=== PATIENT | male | born 1960 | race Caucasian/White ===

== ENCOUNTER → 2017-05-26 | Outpatient (CLI) | payer BC ==
[~2017-05-26] MED LIST: ALL180 PO; ATR25 PO; CLC100 PO; CRD4 PO; DILT-119 PO; FLNIN NAE; FRRG PO; GLC500 PO; HYDC25 PO; OXYC-57 PO; PRLSR20 PO; SYN75 PO
== END | disposition home or self-care (01) ==
LOC: C.RDSM 07:45
PROVIDERS: ATTEND Physical Medicine & Rehabilitation Sports Medicine
DX: M17.0 Bilateral primary osteoarthritis of knee (principal); Z96.649 Presence of unspecified artificial hip joint

== ENCOUNTER → 2017-12-01 | Outpatient (CLI) | payer BC | END | disposition home or self-care (01) | LOC: C.RDSM 07:25 | PROVIDERS: ATTEND Physical Medicine & Rehabilitation Sports Medicine | DX: M17.0 Bilateral primary osteoarthritis of knee (principal) ==

== ENCOUNTER 2021-02-07 06:46 | Observation (INO) ==
--- NOTE | 2021-01-12 11:33 | PAT Medication Instructions ---
Medication Instructions Date of Service January 12, 2021 Home Medications doxazosin 4 mg PO HS hydrochlorothiazide 12.5 mg PO QAM hydroxyzine HCl 25 mg PO DAILY PRN levothyroxine [Synthroid] 75 mcg PO QAM lisinopril 5 mg PO HS metoprolol succinate 50 mg PO QAM zolpidem 5 mg PO HS PRN amitriptyline 25 mg PO HS ascorbic acid (vitamin C) [Vitamin C] 500 mg PO QAM benzonatate [Tessalon Perles] 100 mg PO BID PRN omeprazole 20 mg PO QAM DO NOT take the morning of surgery hydrochlorothiazide 12.5 mg PO QAM hydroxyzine HCl 25 mg PO DAILY PRN ascorbic acid (vitamin C) [Vitamin C] 500 mg PO QAM benzonatate [Tessalon Perles] 100 mg PO BID PRN Take morning of surgery With a small sip of water, OTHERWISE NOTHING TO EAT OR DRINK AFTER MIDNIGHT: levothyroxine [Synthroid] 75 mcg PO QAM metoprolol succinate 50 mg PO QAM omeprazole 20 mg PO QAM Take evening before surgery doxazosin 4 mg PO HS hydroxyzine HCl 25 mg PO DAILY PRN (if needed) lisinopril 5 mg PO HS zolpidem 5 mg PO HS PRN (if needed) amitriptyline 25 mg PO HS benzonatate [Tessalon Perles] 100 mg PO BID PRN (if needed) Other Notes If you have any questions please call us at [phone] or [phone] or [phone] or [phone]
--- NOTE | 2021-01-15 09:03 | Anesthesiology Consultation ---
Date of Service January 15, 2021 Assessment & Plan (1) Encounter for pre-operative examination: COVID Status: As of 01/15 assessment, patient denies travel to endemic area, known exposure/sick contacts, or symptoms of COVID19. Patient instructed that they and their household members must follow strict social distancing guidelines, wear a mask in public and avoid travel/events/gatherings for 14 days prior to surgery. Preoperative COVID19 testing to be completed prior to surgery per surgeon's arrangements. Patient made aware to self-isolate as much as possible between COVID testing and surgery. Cardiology clearance 12/19/20 (Nancy): "Patient describes relatively stable cardiac signs and symptoms with chronic chest pain syndrome for which he has been followed for years. His EKG is without change today, and the character of his discomfort is unchanged compared to my previous outpatient visit with him and August 2020, and compared to my previous emergency room consultation on the patient performed at [facility] on 06/20/2020. He has undergone coronary angiography in 2018 with no significant coronary atherosclerosis. He is stable from a cardiac perspective to proceed with orthopedic surgery with an estimated low risk of perioperative cardiac complication." Chart Review Chart Review: Acceptable Risk for Surgery and Patient seen in Pre Admission Testing Teaching & Discussion Instructed NPO after midnight before surgery, except medications with 15 cc of water. Medication instructions provided according to the PAT guidelines. History Surgery Operation Date: 02/07/21 09:30 Proposed Procedures p Right Total Knee Arthroplasty - Stef Prado MD Height/Weight Height: 6 ft 3 in Weight: 141.7 kg Allergies Allergy/AdvReac Type Severity Reaction Status Date / Time No Known Allergies Allergy Mild Unverified 01/02/21 10:09 Medications Home Medications Medication Instructions Recorded Confirmed Last Taken doxazosin 4 mg PO HS 06/20/20 01/02/21 Unknown hydrochlorothiazide 12.5 mg PO QAM 06/20/20 01/02/21 Unknown hydroxyzine HCl 25 mg PO DAILY PRN 06/20/20 01/02/21 Unknown levothyroxine [Synthroid] 75 mcg PO QAM 06/20/20 01/02/21 Unknown lisinopril 5 mg PO HS 06/20/20 01/02/21 Unknown metoprolol succinate 50 mg PO QAM 06/20/20 01/02/21 Unknown zolpidem 5 mg PO HS PRN 06/20/20 01/02/21 Unknown amitriptyline 25 mg PO HS 01/02/21 01/02/21 Unknown ascorbic acid (vitamin C) [Vitamin 500 mg PO QAM 01/02/21 01/02/21 Unknown C] benzonatate [Tessalon Perles] 100 mg PO BID PRN 01/02/21 01/02/21 Unknown omeprazole 20 mg PO QAM 01/02/21 01/02/21 Unknown Past Medical History Medical History (Updated 01/15/21 @ 09:35 by Ag Deleon) Ascending aortic aneurysm 2018 - Dr. Cruz is monitoring. CT scan 06/20/20 shows stability at 4.9 cm. BPH (benign prostatic hyperplasia) Chronic pain GERD (gastroesophageal reflux disease) Controlled. HTN (hypertension) Hypothyroidism Metabolic syndrome X (05/04/11) Osteoarthritis PONV (postoperative nausea and vomiting) Exercise / Class Metabolic Activity II 4-5 Yardwork/Stairs/Walk up hill (Mild ARANDA with 1 FOS, chronic constant CP not worsened by stairs, does some yardwork) Past Surgical History Surgical History (Updated 01/15/21 @ 09:19 by Ag Deleon) History of arthroscopy of left knee History of cardiac cath 08/2018 - no stents History of lumbar surgery x 2. Hardware present. History of right hip replacement Hx of appendectomy Past Anesthesia History No Hx of Anesthesia Complications (other than pONV) and No Family Hx of Anesthesia Complications History of PONV No Hx of Motion Sickness and History of PONV Social History Smoking Status: Never smoker Do You Dip or Chew Tobacco: No Hx Alcohol Use: Yes alcohol intake frequency: a few times a week Hx Substance Use: No substance use type: does not use Review of Systems Pt denies any recent shortness of breath, palpitations, fever, URI, or uncontrolled acid reflux. +chest pain, chronic, "constant but varying in intensity" +cough, chronic, no formal dx Physical Exam Vital Signs BP: 144/101 (pt reports it was elevated at surgeon's office, pt advised to check it at home for the next few days and report to cardio. BP at 12/19/20 cardio clearance 113/88. P: 57bpm SPO2: 94% RA T: 97.9 F R: 16 ENMT Mouth: + macroglossia; no dental restorations, no chipped teeth and no loose teeth Thyromental Distance: > or= 3.5 Finger Breadths Mallampati Class: II Neck + limited neck extension Respiratory normal respiratory effort, lungs clear to auscultation Cardiovascular RRR, no murmur, no edema Testing Laboratory Results 01/15/21 09:39 01/15/21 09:39 PT 10.3 Seconds (9.0-12.0) 01/15/21 09:39 INR 1.0 (0.9-1.1) 01/15/21 09:39 APTT 26.2 Seconds (21.0-31.0) 01/15/21 09:39 Urine Color Yellow 01/15/21 09:39 Urine Appearance Clear (Clear) 01/15/21 09:39 Urine pH 7.0 (4.5-7.5) 01/15/21 09:39 Ur Specific [place] 1.009 (1.000-1.030) 01/15/21 09:39 Urine Protein Negative (Negative) 01/15/21 09:39 Urine Glucose (UA) Negative (Negative) 01/15/21 09:39 Urine Ketones Negative (Negative) 01/15/21 09:39 Urine Nitrite Negative (Negative) 01/15/21 09:39 Ur Leukocyte Esterase Negative (Negative) 01/15/21 09:39 Blood Type A Positive 01/15/21 09:39 Antibody Screen NEGATIVE 01/15/21 09:39 Electrocardiogram Date: 12/19/20 Findings: + NSR @ (63bpm) Chest X-Ray Date: 06/20/20 Findings: + NAD Echocardiogram Date: 05/29/20 EF: 61% Mild concentric LVH. LV wall motion is normal. Grade 1 diastolic dysfunction of the left ventricle. The aortic root is mildly enlarged at 4.4 cm. The ascending aorta is moderately enlarged, 4.9 cm. Compared to the prior study of 11/23/2018, there has been no significant interval change. Stress Test Date: 06/16/18 Resting EF: 55-60% Stress echo was negative for inducible ischemia. No arrhythmias. Normal heart rate and BP response to exercise. Average exercise tolerance. Chest pain present upon presentation, unchanged with exercise. At rest, normal LV chamber size with mild concentric LVH. Normal LV systolic function without regional wall motion abnormality. Grade 1 diastolic dysfunction. No significant valvular pathology. Mild left atrial enlargement. Aortic root is mildly enlarged. The proximal ascending thoracic aorta is moderately enlarged. Cardiac Catheterization Date: 08/20/18 Coronary arteries are angiographically normal. Catheterization provides no explanation for symptoms.
[2021-01-15 10:56] LABS: Basophils # (auto) 0.02 K/uL (0-0.2); Basophils % (auto) 0.4 %; Eosinophils # (auto) 0.15 K/uL (0-0.5); Eosinophils % (auto) 3.4 %; Hematocrit (blood only) 41.2 % (42-52); Hemoglobin 14.6 g/dL (14.0-18.0); Immature Granulocytes # (auto) 0.01 K/uL (0.00-0.02); Immature Granulocytes % (auto) 0.2 %; Lymphocytes # (auto) 1.54 K/uL (1.2-3.4); Lymphocytes % (auto) 34.5 %; Mean Corpuscular Hemoglobin 31.3 pg (25-34); Mean Corpuscular Hgb Conc 35.4 g/dL (32-36); Mean Corpuscular Volume 88.4 fL (80-100); Monocytes # (auto) 0.39 K/uL (0.11-0.59); Monocytes % (auto) 8.7 %; Neutrophils # (auto) 2.35 K/uL (1.4-6.5); Neutrophils % (auto) 52.8 %; Platelet Count 188 K/uL (130-400); RDW Coefficient of Variation 12.5 % (11.5-14.5); RDW Standard Deviation 40.1 fL (36.4-46.3); Red Blood Count 4.66 M/uL (4.7-6.1); White Blood Count 4.46 K/uL (4.8-10.8)
[2021-01-15 11:00] LABS: Appearance Urine Clear (Clear); Bilirubin Urine Negative (Negative); Blood Urine Negative (Negative); Color Urine Yellow; Glucose Urine UA Negative (Negative); Ketones Urine Negative (Negative); Leukocyte Esterase Urine Negative (Negative); Nitrite Urine Negative (Negative); Protein Urine Negative (Negative); Specific Gravity Urine 1.009 (1.000-1.030); Urobilinogen Urine Negative (Negative)
[2021-01-15 11:04] LABS: BUN Creatinine Ratio 16.8 (10-20); Calcium 9.4 mg/dl (8.5-10.1); Creatinine Clr Calc Pharmacy 117.8 ml/min; Est GFR (African American) 93.7; Est GFR (Non-African American) 80.9
[2021-01-15 11:07] LABS: Partial Thromboplastin Time 26.2 Seconds (21.0-31.0); Prothrombin Time 10.3 Seconds (9.0-12.0)
--- NOTE | 2021-01-18 09:53 | History & Physical Report ---
Date of Service January 18, 2021 Assessment & Plan (1) Left knee DJD: Postoperative prescriptions for Coumadin and Percocet will be provided at discharge from the hospital. Anticipate discharge to home with home health services. Preoperative lab work, EKG, and chest x-ray have been ordered for today. He is seeing preadmission testing today. The patient has already been cleared by his back tacker. He already has access to a walker and cane. PDMP was checked and there are no concerning findings. The patient is aware of the COVID-19 risks associated with surgery. He is currently asymptomatic of any COVID-19 symptoms. He will obtain nasal swab testing 1 week prior to surgery. Postop followup appointment has already been made for 02/22/2021 at 1:00 p.m. History of Present Illness Chief Complaint: Left knee DJD Primary Care Provider: Huang Ma DO This 60-year-old male presents today with his , for his preoperative hist ory and physical. He is scheduled to undergo a left knee total knee arthroplasty on 02/07/2021. The patient has had a longstanding history of bilateral knee pain, left greater than right. It has been ongoing for many years. He has noted more difficulty with weightbearing and ambulation. Pain is affecting his ADLs. No numbness or tingling. He has tried activity modification, oral pain medications, and injection therapy without improvement. Allergies Allergy/AdvReac Type Severity Reaction Status Date / Time No Known Allergies Allergy Mild Unverified 01/02/21 10:09 Home Medications Medication Instructions Recorded Confirmed Type doxazosin 4 mg PO HS 06/20/20 01/02/21 History hydrochlorothiazide 12.5 mg PO QAM 06/20/20 01/02/21 History hydroxyzine HCl 25 mg PO DAILY PRN 06/20/20 01/02/21 History levothyroxine [Synthroid] 75 mcg PO QAM 06/20/20 01/02/21 History lisinopril 5 mg PO HS 06/20/20 01/02/21 History metoprolol succinate 50 mg PO QAM 06/20/20 01/02/21 History zolpidem 5 mg PO HS PRN 06/20/20 01/02/21 History amitriptyline 25 mg PO HS 01/02/21 01/02/21 History ascorbic acid (vitamin C) [Vitamin 500 mg PO QAM 01/02/21 01/02/21 History C] benzonatate [Tessalon Perles] 100 mg PO BID PRN 01/02/21 01/02/21 History omeprazole 20 mg PO QAM 01/02/21 01/02/21 History Past Med/Surg History Medical History Ascending aortic aneurysm 2017 - Dr. Cruz is monitoring. CT scan 06/20/20 shows stability at 4.9 cm. BPH (benign prostatic hyperplasia) Chronic pain GERD (gastroesophageal reflux disease) Controlled. HTN (hypertension) Hypothyroidism Metabolic syndrome X (05/04/11) Osteoarthritis PONV (postoperative nausea and vomiting) Surgical History History of arthroscopy of left knee History of cardiac cath 08/2018 - no stents History of lumbar surgery x 2. Hardware present. History of right hip replacement Hx of appendectomy Social History Smoking Status: Never smoker Second Hand Exposure: No; Do You Dip or Chew Tobacco: No; Tobacco Cessation Education Requested by Patient: No Hx Alcohol Use: Yes Hx Substance Use: No Preferred Language: Slovak Communication Ability: Effective Christian Science Nurse Required: No Beliefs That Will Affect Care: None Current Living Situation: Spouse Other Information That Helps Us Care for You: No Feels Safe at Home: Yes Safety Concerns: Feels Safe At This Time Assistive Devices: Glasses Review of Systems Review of Systems: All systems reviewed & are unremarkable except as noted in HPI & below A total of 10 systems were reviewed. Physical Exam Physical Exam: Vitals: Height 190.3 cm, weight 136.6 kilograms, BMI 37.7. Temperature 36.5, BP 150/102, pulse 68, O2 sat 97% on room air. General: Well-developed, well-nourished middle-aged white male in no acute distress. Sitting in a chair. Alert and oriented. Skin: Warm and dry with good turgor. No rashes or lesions. No ecchymosis or erythema. HEENT: Normocephalic, atraumatic. Eyes: PERRLA, EOMI. Nares and oropharynx exams deferred due to COVID precautions. Heart: RRR, no MGR. Lungs: Clear to auscultation bilaterally, no crackles, rhonchi or wheezing, good air movement. Abdomen: Obese, bowel sounds present x4, soft, nontender. No organomegaly. No masses. Musculoskeletal: Left knee evaluation reveals no intraarticular effusion. Palpable arthritic spurs. He has crepitus palpable along the lateral aspect of the knee with motion. Range of motion is limited. He lacks about 4 degrees of terminal extension. Flexion to 140 degrees. Strength is 5/5 with fairly good quad tone. Stable collateral ligaments. No defect in the patellar tendon or quadriceps tendon. Ambulates with an antalgic gait. Neurologic: Gross sensation is intact across the lower extremities by soft touch. Peripheral pulses are 2+. Results & Data Results & Data ([facility]) Diagnostic Findings Radiographic imaging previously obtained of the left knee shows endstage DJD with [id number] in the medial compartment. Large periarticular osteophytes and subchondral sclerosis are also present.
[~2021-02-07 06:46] MED LIST changes: -ALL180 PO; -ATR25 PO; +BUPIVACAINE 0.5 % 5 MG/1 ML PF 10ML VIAL ONE; -CLC100 PO; -CRD4 PO; -DILT-119 PO; -FLNIN NAE; -FRRG PO; -GLC500 PO; -HYDC25 PO; +LR 500ML BOLUS, THEN 15ML/HR IV SCH; +LR 60ML/HR IV SCH; -OXYC-57 PO; -PRLSR20 PO; +ROPIVACAINE 0.5% 5 MG/ML 30 ML VIAL ONE; +ROPIVACAINE 0.5% HCL/PF 150 MG, BUPIVACAINE 0.75% MPF 20 ML, EPINEPHrine 0.15 MG, Ketor... INFIL SCH; -SYN75 PO; +TRANEXAMIC ACID 1,000 MG **IV Pre-op IV SCH
--- NOTE | 2021-02-07 06:51 | History & Physical Bridge Note ---
Date of Service February 07, 2021 History & Physical Bridge Note I have examined the patient, reviewed the History & Physical and in the interval since the performance of the History & Physical I have noted the following changes of clinical significance: consent obtained/site verified/covid screen negative.no changes noted
[2021-02-07] MEDS ORDERED: MIDAZOLAM HCL 1 MG/ML 2ML VIAL ONE ×2 (08:01→08:37)
[2021-02-07] MEDS ORDERED: fentaNYL citrate 100 MCG/2 ML VIAL ONE (08:01)
[2021-02-07] MEDS ORDERED: PROPOFOL IV EMULSION 10 MG/ML 20 ML VIAL IV ONE ×6 (08:01→11:08)
[2021-02-07] MEDS ORDERED: LIDOCAINE HCL 2% 2 ML VIAL/AMP(20MG/ML) INFIL ONE (08:01)
[2021-02-07] MEDS ORDERED: HYDROmorphone INJ 1 MG/ML SYRINGE IV PRN ×2 (08:36→13:17)
[2021-02-07] MEDS ORDERED: ePHEDrine sulfate 50 MG/ML AMP IV PRN (08:36)
[2021-02-07] MEDS ORDERED: KETOROLAC 30 MG/ML VIAL IV PRN (08:36)
[2021-02-07] MEDS ORDERED: PROMETHAZINE HCL 12.5 MG in SODIUM CHLORIDE 0.9% 50 ML IV PRN (08:36)
[2021-02-07] MEDS ORDERED: ONDANSETRON INJ 2 MG/ML 2 ML VIAL IV PRN ×2 (08:36→13:17)
[2021-02-07] MEDS ORDERED: ATROPINE SULFATE 0.1 MG/ML 10ML SYR IV PRN (08:36)
[2021-02-07] MEDS ORDERED: ORTHO JOINT ANESTHETIC ONE (09:01)
[2021-02-07] MEDS ORDERED: KETAMINE 50 MG/5 ML SYRINGE ONE (09:22)
--- NOTE | 2021-02-07 11:11 | Post Operative Brief Note ---
Immediate Post Op Note v1 Date of Surgery February 07, 2021 Pre & Post Diagnosis Operation Date: 02/07/21 08:50 Pre-Op Diagnosis: Left Knee Osteoarthritis Post-Op Diagnosis: Left Knee Osteoarthritis I identified the patient and participated in the time-out.: Yes Procedure Operation Date: 02/07/21 08:50 Actual Procedures p Left Total Knee Arthroplasty, Cemented(Left) - Stef Prado MD Surgeon Stef Prado MD Link Wire Fabric Machine Tender aracely/erika Estimated Blood Loss 150 Findings Consistent with Post-Op Diagnosis
--- NOTE | 2021-02-07 11:19 | Operative Report ---
Post Operative Report Pre & Post Diagnosis Operation Date: 02/07/21 08:50 Pre-Op Diagnosis: Left Knee Osteoarthritis Post-Op Diagnosis: Left Knee Osteoarthritis I identified the patient and participated in the time-out.: Yes Procedure Operation Date: 02/07/21 08:50 Actual Procedures p Left Total Knee Arthroplasty, Cemented(Left) - Stef Prado MD Surgeon JOCE Prado MD Mechanical Process Engineer aracely/erika SARABIA Estimated Blood Loss 150 Findings Consistent with Post-Op Diagnosis Specimens see operative report Drains none Complications none Disposition Accompanied Patient To Recovery: Yes Disposition: Recovery Room Indications This 60-year-old male presented to the office with complaints of persisting left knee pain. Symptoms have been ongoing for years. He tried conservative care measures without improvement. He elected to proceed with surgical intervention after being educated about potential risks and outcomes. Preoperative imaging was obtained. Description of Procedure Patient was given a spinal anesthetic and then taken to the operating room where he was given sedation. He was prepped and draped in the usual sterile fashion. Please see Dr. Prado's operative report for specifics of the procedure. I was present for the entire case from initial patient positioning through final wound closure. Assistance was provided in tissue retraction, hemostasis, trial implant placement, final implant placement, and final wound closure. Patient was taken to the recovery room in satisfactory condition. I attest to the content of the Intraoperative Record and any orders documented therein. Any exceptions are noted below.
--- NOTE | 2021-02-07 11:21 | Operative Report (OR) ---
DATE OF OPERATION: 02/07/2021 SURGEON: Stef Prado MD. DECK SPECIALIST: Dr. Lagos. SECOND DECK SPECIALIST: Juan Manuel Watkins PA-C. PREOPERATIVE DIAGNOSES: Osteoarthritis, left knee with varus deformity and flexion contracture. POSTOPERATIVE DIAGNOSES: Osteoarthritis, left knee with varus deformity and flexion contracture. OPERATION PERFORMED: Cemented left total knee replacement. SUMMARY OF IMPLANTS: Size 5 left femur, posterior cruciate substituting size 5 rotating platform tray, size 5 x 10 mm thick rotating platform, posterior cruciate stabilized size 41 patella, 2 bags of Palacos G cement. ESTIMATED BLOOD LOSS: 150 mL CRYSTALLOID: Per anesthesia. BONE PATHOLOGY: Pending. PERIOPERATIVE SITUATION: Medically cleared male with intractable knee pain bilaterally, was debating on the right versus left for some time and decided on the left and we will proceed with that today, he understands the risks and consequences of no guarantees. He has significant comorbidities. DESCRIPTION OF PROCEDURE: The patient was appropriately identified, site verified, consent verified. Antibiotics confirmed as being given. The left lower extremity was prepped and draped in usual routine fashion. Tourniquet inflated to 275 mmHg after exsanguination of limb with a rubber Esmarch bandage for a total of 68 minutes. Midline exposure was utilized. Parapatellar arthrotomy performed. Complete synovectomy performed. Osteophytes resected. Contractures released. Distal femur resected 14 mm, proximal tibia resected 4 mm, extension gap was excellent. The femur was sized between a 6 and a 5, was measured 6 cut 5. There was no abnormal notching. The tibia was then cut 4 mm and sized to a 5. The flexion gap and extension gaps were excellent. Once the femur was sized, anterior, posterior, condylar and chamfer cuts made. The flexion gap checked that was excellent. The posterior capsule was then injected with 2 syringe fulls of the Orthomix. The box cut was then made and the size 5 fit well. Tibia was then broached and reamed to a size 5 and appropriate 10 mm spacer placed and it tracked well. There was excellent stability in full extension, full flexion and mid range flexion. The patella was resected leaving about 18 mm and a 41 button trial, drilled and seated into position. It tracked well. All trial elements were then removed. The wound irrigated with Betadine and Pulsavac and then the permanent cemented in position, tibia, femur and patella in that order. After 12 minutes, the tourniquet deflated. Minor bleeding points controlled with electrocautery. At 14 minutes, knee flexed, no cement removal required. The knee was irrigated, a trial spacer removed, permanent spacer seated, knee reduced and then closed at 40 degrees of flexion using #2 Vicryl, 2-0 Vicryl and stainless steel clips. Appropriate dressing applied. The patient transferred to recovery room in satisfactory condition having tolerated the procedure well. I attest to the content of the Intraoperative Record and any orders documented therein. Any exception s are noted below.
[2021-02-07] MEDS ORDERED: VANCOMYCIN HCL 2,000 MG in SODIUM CHLORIDE 0.9% 500 ML IV ONE (11:35)
--- NOTE | 2021-02-07 11:43 | XRay Report ---
LEFT KNEE 2 VIEWS History: Left total knee arthroplasty. Degenerative arthritis. Postop. FINDINGS: The patient is status post a left total knee arthroplasty. The hardware is intact. No fract ure or dislocation. Skin booker are in place. IMPRESSION: Left total knee arthroplasty. No evidence for hardware complication. ACT 112: Negative or not required by law. Electronically signed by: Joel Gresham M.D. 02/07/2021 11:41 AM
--- NOTE | 2021-02-07 12:55 | Anesthesiology Progress Note ---
Date of Service February 07, 2021 Anesthesia Post Procedure Vital Signs Vital Signs: Temp Pulse Pulse Resp BP Pulse Ox 02/07/21 12:51 36.1 C L 53 L 16 134/90 98 02/07/21 12:40 57 L 14 129/92 98 02/07/21 12:30 55 L 18 134/92 98 02/07/21 12:20 56 L 14 134/87 97 02/07/21 12:10 57 L 18 131/90 98 02/07/21 12:00 59 L 16 147/94 H 100 02/07/21 11:50 57 L 20 143/82 H 100 02/07/21 11:40 64 16 146/98 H 98 02/07/21 11:30 69 15 148/95 H 98 02/07/21 11:20 76 15 125/78 98 02/07/21 11:19 36.4 C L 74 18 123/78 98 02/07/21 08:10 36.4 C L 58 L 20 150/98 H 98 02/07/21 07:21 36.6 C 68 20 140/97 96 Pain Intensity Left Knee: Pain Intensity: 0 Transfer of Care Handoff Completed per policy Notes Mental Status: alert / awake / arousable Patient Amnestic to Procedure: Yes Nausea / Vomiting: adequately controlled Pain: adequately controlled Airway Patency, RR, SpO2: stable & adequate BP & HR: stable & adequate Hydration State: stable & adequate Anesthetic Complications: no major complications apparent
[2021-02-07] MEDS ORDERED: METOCLOPRAMIDE HCL INJ 5 MG/ML 2 ML VIAL IV PRN (13:17)
[2021-02-07] MEDS ORDERED: TAMSULOSIN HCL 0.4 MG CAP PO PRN (13:17)
[2021-02-07] MEDS ORDERED: ZOLPIDEM TARTRATE 5 MG TAB PO PRN (13:17)
[2021-02-07] MEDS ORDERED: BENZONATATE 100 MG CAPSULE PO PRN (13:17)
[2021-02-07] MEDS ORDERED: SODIUM CHLORIDE 0.9% 1000ML 1,000 ML IV SCH (13:17)
[2021-02-07] MEDS ORDERED: ALUMINUM/MAGNESIUM SUSP 30 ML UDC PO PRN (13:17)
[2021-02-07] MEDS ORDERED: MAGNESIUM HYDROXIDE SUSP 30 ML UDC PO PRN (13:17)
[2021-02-07] MEDS ORDERED: NALOXONE HCL 0.4 MG/1 ML VIAL/CARP IV PRN (13:17)
[2021-02-07] MEDS ORDERED: hydrOXYzine HCl 25 MG TAB PO PRN (13:17)
[2021-02-07] MEDS ORDERED: bisacodyL 10 MG SUPP PR PRN (13:17)
[2021-02-07] MEDS ORDERED: diphenhydrAMINE 50 MG/ML VIAL IV PRN (13:17)
--- NOTE | 2021-02-07 13:47 | Progress Notes ---
DATE: 02/07/2021 SUBJECTIVE: Postop check status post left total knee replacement. The patient is doing well. Denies chest pain, shortness of breath, fever, chills, nausea, vomiting or headache. OBJECTIVE: Wound dressing clean, dry and intact. Neurovascular check limited by spinal yet. Postop x-rays look excellent. ASSESSMENT: Doing well. Continue postoperative care pathway. Discharge tomorrow after PT/OT.
[2021-02-07] MEDS ORDERED: ORTHO WARFARIN NOMOGRAM SCH (14:00)
[2021-02-07] MEDS: oxyCODONE HCL IR 5 MG TAB (IMMEDIATE RELEASE) PO PRN ×2 (14:47→18:46)
--- NOTE | 2021-02-07 14:53 | Discharge Summary (DS) ---
CHIEF COMPLAINT: Left knee pain. HISTORY OF PRESENT ILLNESS: Admitted for elective left total knee replacement. The patient did well postoperatively. Postop x-rays look excellent. History of present illness is a longstanding problem, has had decades of pain, at this point wants to proceed with the left. The options to go with right or the left, but not simultaneously, he elected the left. PAST MEDICAL HISTORY: Remarkable for history of known aortic aneurysm. He is followed by Dr. Cruz. Benign prostatic hyperplasia, chronic pain, GERD, hypertension, hypothyroidism, metabolic syndrome X, osteoarthritis, postoperative nausea and vomiting. PAST SURGICAL HISTORY: Remarkable for multiple knee scopes, cardiac cath, no stents, history of lumbar surgery, fusion, history of right hip replacement, history of appendectomy. SOCIAL HISTORY: Reveals he does not smoke or drink. Lives with his spouse. Feels safe at home. REVIEW OF SYSTEMS: Noncontributory. Postop x-rays look excellent. ASSESSMENT: Doing well status post left total knee replacement. PLAN: The plan is for discharge tomorrow.
--- NOTE | 2021-02-07 15:32 | Operative Report ---
Post Operative Report Pre & Post Diagnosis Operation Date: 02/07/21 08:50 Pre-Op Diagnosis: Left Knee Osteoarthritis Post-Op Diagnosis: Left Knee Osteoarthritis I identified the patient and participated in the time-out.: Yes Procedure Operation Date: 02/07/21 08:50 Actual Procedures p Left Total Knee Arthroplasty, Cemented(Left) - Stfe Prado MD Surgeon Stef Prado MD Tomb Maker Helper aracely/erika SARABIA Estimated Blood Loss 150 Findings Consistent with Post-Op Diagnosis Specimens bone cuts Anesthesia Type Spinal Complications none Disposition Accompanied Patient To Recovery: Yes Disposition: Recovery Room Description of Procedure As per 's note, I assisted in prepping and draping, instruments handling, certain parts of the procedure and wound closure. I attest to the content of the Intraoperative Record and any orders documented therein. Any exceptions are noted below.
[2021-02-07] MEDS ORDERED: WARFARIN SOD 1 MG TAB PO SCH (16:00)
[2021-02-07] MEDS ORDERED: WARFARIN SOD 5 MG TAB PO SCH ×2 (16:00)
[2021-02-07] MEDS: KETOROLAC 30 MG/ML VIAL IV SCH ×2 (16:17→21:12)
[2021-02-07] MEDS ORDERED: TRANEXAMIC ACID / 0.7% NACL 1,000 MG/100 ML BAG IV SCH (17:30)
[2021-02-07] MEDS: ceFAZolin 2000MG 2,000 MG/15 ML SYR IV SCH (18:10)
[2021-02-07] MEDS: FERROUS GLUCONATE 324 MG TAB PO SCH (18:10)
[2021-02-07] MEDS: ASCORBIC ACID 500 MG TAB PO SCH (18:10)
[2021-02-07] MEDS: ACETAMINOPHEN 500 MG TAB PO SCH (18:19)
[2021-02-07] MEDS ORDERED: SENNA 8.6 MG TAB PO SCH (21:00)
[2021-02-07] MEDS ORDERED: PANTOprazole 40 MG TAB PO SCH (21:00)
[2021-02-07] MEDS ORDERED: AMITRIPTYLINE HCL 25 MG TAB PO SCH (21:00)
[2021-02-07] MEDS ORDERED: DOXAZosin MESYLATE 4 MG TAB PO SCH (21:00)
[2021-02-07] MEDS: carvediloL 12.5 MG TAB PO SCH (21:09)
[2021-02-07] MEDS: DOCUSATE SODIUM 100 MG CAP PO SCH (21:10)
[2021-02-07] MEDS: lisinopril 5 MG TAB PO SCH (21:10)
[2021-02-08] MEDS: oxyCODONE HCL IR 5 MG TAB (IMMEDIATE RELEASE) PO PRN ×2 (00:47→06:22)
[2021-02-08] MEDS: ACETAMINOPHEN 500 MG TAB PO SCH ×2 (02:19→10:07)
[2021-02-08] MEDS: ceFAZolin 2000MG 2,000 MG/15 ML SYR IV SCH (02:19)
[2021-02-08] MEDS: KETOROLAC 30 MG/ML VIAL IV SCH ×2 (04:01→08:38)
[2021-02-08] MEDS ORDERED: LEVOTHYROXINE SODIUM 75 MCG TABLET PO SCH (06:30)
[2021-02-08 07:36] LABS: Hematocrit (blood only) 31.8 % (42-52); Hemoglobin 11.4 g/dL (14.0-18.0); Mean Corpuscular Hemoglobin 31.8 pg (25-34); Mean Corpuscular Hgb Conc 35.8 g/dL (32-36); Mean Corpuscular Volume 88.8 fL (80-100); Mean Platelet Volume 10.2 fL (7.4-10.4); Platelet Count 169 K/uL (130-400); RDW Coefficient of Variation 12.5 % (11.5-14.5); RDW Standard Deviation 40.3 fL (36.4-46.3); Red Blood Count 3.58 M/uL (4.7-6.1); White Blood Count 6.85 K/uL (4.8-10.8)
[2021-02-08 07:48] LABS: INR 1.1 (0.9-1.1); Prothrombin Time 10.9 Seconds (9.0-12.0)
[2021-02-08 08:00] LABS: Calcium 8.2 mg/dl (8.5-10.1); Creatinine Clr Calc Pharmacy 108.2 ml/min; Est GFR (African American) 86.4; Est GFR (Non-African American) 74.5; Potassium 3.8 mmol/L (3.5-5.1)
[2021-02-08] MEDS ORDERED: dexAMETHasone 10 MG in SYRINGE 0 ML IV SCH (08:00)
[2021-02-08] MEDS: lisinopril 5 MG TAB PO SCH (08:37)
[2021-02-08] MEDS: ASCORBIC ACID 500 MG TAB PO SCH (08:38)
[2021-02-08] MEDS: FERROUS GLUCONATE 324 MG TAB PO SCH (08:38)
[2021-02-08] MEDS: carvediloL 12.5 MG TAB PO SCH (08:38)
[2021-02-08] MEDS: DOCUSATE SODIUM 100 MG CAP PO SCH (08:38)
--- NOTE | 2021-02-08 08:43 | Anesthesiology Progress Note ---
Date of Service February 08, 2021 Anesthesia Post Procedure Vital Signs Vital Signs: Temp Pulse Pulse Resp BP Pulse Ox 02/08/21 06:46 36.5 C 64 16 116/75 95 02/08/21 02:05 36.5 C 71 16 108/69 96 02/07/21 21:49 36.4 C L 72 18 118/69 96 02/07/21 21:08 80 118/71 02/07/21 19:21 36.5 C 75 16 128/82 95 02/07/21 16:08 71 16 145/87 H 98 02/07/21 15:18 36.3 C L 65 16 137/90 99 02/07/21 14:07 58 L 14 143/91 H 99 02/07/21 13:37 56 L 16 133/88 99 02/07/21 13:10 36.3 C L 57 L 16 135/91 100 02/07/21 12:51 36.1 C L 53 L 16 134/90 98 02/07/21 12:40 57 L 14 129/92 98 02/07/21 12:30 55 L 18 134/92 98 02/07/21 12:20 56 L 14 134/87 97 02/07/21 12:10 57 L 18 131/90 98 02/07/21 12:00 59 L 16 147/94 H 100 02/07/21 11:50 57 L 20 143/82 H 100 02/07/21 11:40 64 16 146/98 H 98 02/07/21 11:30 69 15 148/95 H 98 02/07/21 11:20 76 15 125/78 98 02/07/21 11:19 36.4 C L 74 18 123/78 98 Pain Intensity Left Knee: Pain Intensity: 7 Notes Mental Status: alert / awake / arousable and participated in evaluation Patient Amnestic to Procedure: Yes Nausea / Vomiting: adequately controlled Pain: adequately controlled Airway Patency, RR, SpO2: stable & adequate BP & HR: stable & adequate Hydration State: stable & adequate Neuraxial Anesthesia: was administered and sensory block resolved Anesthetic Complications: no major complications apparent
--- NOTE | 2021-02-08 08:51 | Orthopedic Progress Note ---
Date of Service February 08, 2021 Assessment & Plan (1) S/P total knee arthroplasty: Dressing was changed this morning by me. Patient will leave this in place until Friday, and then have it changed as needed for soiling by the home health staff. Coumadin 4 mg daily starting tomorrow, and have his blood rechecked on Friday. He will be given today's dose before discharge from the hospital. Continue using the knee immobilizer today and tomorrow when out of bed. He may discontinue it after dinner tomorrow night. Continue using his walker for ambulation. Follow-up in the office in 2 weeks for staple removal as scheduled. Prescriptions for Coumadin 2 mg and Percocet 5 mg have been sent to his pharmacy. Written discharge instructions were provided. Admission and Anticipated Discharge Date Admission Date: February 07, 2021 Subjective Patient is seen in his room this morning. He is eating breakfast. States he did not rest very well overnight. He states there were a lot of interruptions. He denies any chest pain, shortness of breath, nausea, vomiting, or abdominal pain. He did have some left knee pain but it was controlled with the ordered pain medication. He feels ready to go home today. No other complaints. He has been out of bed. Review of Systems Review of Systems: Unchanged from yesterday. Physical Exam Physical Exam: General: Well-developed, well-nourished, middle-aged male, in no acute distress. Laying on the bed. Alert and oriented. Conversive. Skin: Warm and dry with good turgor. No rashes. Postoperative dressings are intact. Upon removal, there is scant dried blood on his dressings. There is no active bleeding from the wound. Expected postoperative edema. No ecchymosis. Musculoskeletal: Left knee evaluation reveals expected postoperative edema. Intact motor function of the knee and ankle. He has full terminal extension. Flexion to around 60 degrees without difficulty. He is able to perform straight leg raise. Neurologic: Gross sensation is intact across the left leg by soft touch. Peripheral pulses are 2+. Results & Data ([facility]) Vital Signs (Past 12 Hours) Vital Signs Temp Pulse Pulse Resp BP Pulse Ox 02/08/21 06:46 36.5 C 64 16 116/75 95 02/08/21 02:05 36.5 C 71 16 108/69 96 02/07/21 21:49 36.4 C L 72 18 118/69 96 02/07/21 21:08 80 118/71 Laboratory Results H&H this morning are 11.4 and 31.8. RBCs 3.58. Normal white count at 6.85. INR this morning is 1.1. PRP is unremarkable.
--- NOTE | 2021-02-08 08:54 | Progress Notes ---
DATE: 02/08/2021 SUBJECTIVE: Postop check, status post left total knee replacement. The patient is doing well, he has bee up, voiding, eating, drinking. Denies chest pain, shortness of breath, fever, chills, nausea, vomiting or headache. A little bit of skittish about going home, but advised him that that would be best place. He was doing well to do that. OBJECTIVE: VITAL SIGNS: Stable. He is afebrile. Blood pressure and pulse look excellent. Wound dressing clean, dry and intact. Femoral sciatic nerve function is good. Can do a straight leg raise. Pumps his ankle into dorsi and palmar flexion well. Calves are nontender. A.m. labs are pending. ASSESSMENT: Doing well. Discharge to home today after PT, OT and case management to finalize the plan. He can start physical therapy in 1 week. Coumadin per nomogram today prior to discharge.
[2021-02-08] MEDS ORDERED: MULTIVITAMIN TAB PO SCH (09:00)
[2021-02-08] MEDS ORDERED: hydroCHLOROthiazide 25 MG TAB PO SCH (09:00)
== END 2021-02-08 11:05 | disposition home health service (06) ==
LOC: 3E 06:46 → ASU 06:46

== ENCOUNTER 2021-10-17 05:16 | Observation (INO) ==
--- NOTE | 2021-07-13 14:29 | PAT Medication Instructions ---
Medication Instructions Date of Service July 13, 2021 Home Medications doxazosin 4 mg tablet 4 mg PO HS 06/20/20 hydrochlorothiazide 12.5 mg capsule 12.5 mg PO QAM hydroxyzine HCl 25 mg tablet 25 mg PO BID PRN levothyroxine 75 mcg tablet (Synthroid) 75 mcg PO QAM lisinopril 5 mg tablet 5 mg PO BID zolpidem 5 mg tablet 5 mg PO HS PRN ascorbic acid (vitamin C) 500 mg tablet (Vitamin C) 500 mg PO QAM benzonatate 100 mg capsule (Tessalon Perles) 100 mg PO BID PRN omeprazole 20 mg capsule,delayed release 20 mg PO QPM carvedilol 12.5 mg tablet 12.5 mg PO BID DO NOT take the morning of surgery hydrochlorothiazide 12.5 mg capsule 12.5 mg PO QAM hydroxyzine HCl 25 mg tablet 25 mg PO BID PRN lisinopril 5 mg tablet 5 mg PO BID ascorbic acid (vitamin C) 500 mg tablet (Vitamin C) 500 mg PO QAM benzonatate 100 mg capsule (Tessalon Perles) 100 mg PO BID PRN Take morning of surgery With a small sip of water, OTHERWISE NOTHING TO EAT OR DRINK AFTER MIDNIGHT: levothyroxine 75 mcg tablet (Synthroid) 75 mcg PO QAM carvedilol 12.5 mg tablet 12.5 mg PO BID Take evening before surgery doxazosin 4 mg tablet 4 mg PO HS hydroxyzine HCl 25 mg tablet 25 mg PO BID PRN (if needed) lisinopril 5 mg tablet 5 mg PO BID zolpidem 5 mg tablet 5 mg PO HS PRN (if needed) benzonatate 100 mg capsule (Tessalon Perles) 100 mg PO BID PRN (if needed) omeprazole 20 mg capsule,delayed release 20 mg PO QPM carvedilol 12.5 mg tablet 12.5 mg PO BID Other Notes If you have any questions please call us at [phone] or [phone] or [phone] or [phone]
--- NOTE | 2021-09-24 09:08 | Anesthesiology Consultation ---
Date of Service September 24, 2021 Assessment & Plan (1) Encounter for pre-operative examination: - cardiology pre-op evaluation 09/20/2021: "...cardiovascular risk stratification for right total knee replacement scheduled for 10/17/[address] Prado with [facility]. Patient was last seen by Dr. Cruz in May of 2021 where he was feeling well and offered no acute concerns...Recent echocardiogram performed 05/18/2021 revealed stable aortic root enlargement 4.5 cm and stable moderate to borderline severe dilation of the ascending aorta, 4.9 cm which is unchanged compared to previous. Patient saw CT surgery (Dr. Aponte) on 07/19/2021-per Dr. Aponte CT was stable showing an ascending aorta of 4.8 cm. Plans to repeat CT in 1 year prior to follow-up. Today the patient presents feeling well and offers no acute concerns. Notes that he has chronic chest discomfort and shortness of breath on exertion however this has been unchanged for quite some time. Cardiac catheterization done in August of 2018 for these symptoms showed angiographically normal coronary arteries... Patient is medically cleared for surgery. Moderate risk less than 6.6% for any adverse perioperative CV events." - Case discussed with Dr. Dodson. Outpatient joint assessment: Patient is currently scheduled for inpatient pathway. If re-evaluated pending system levels during current pandemic, patient is NOT acceptable candidate for outpatient joint program. - COVID screening: Per assessment on 09/24/2021: Travel screen negative, no known COVID-19 positive contacts or current COVID-19 related symptoms. Patient vaccinated. Surgeon arranging preop COVID testing, scheduled 10/15 NM. Awaiting results. Chart Review Chart Review: Acceptable Risk for Surgery and Patient seen in Pre Admission Testing Teaching & Discussion Pre-Anesthesia Teaching/Discussion Notes: Instructed NPO after midnight before surgery, except medications with 15 cc of water. Medication instructions provided according to the PAT guidelines. History Surgery Operation Date: 10/17/21 08:50 Proposed Procedures p Right Total Knee Arthroplasty - Stef Prado MD Height/Weight Height: 6 ft 3 in Weight: 144 kg Allergies Allergy/AdvReac Type Severity Reaction Status Date / Time No Known Allergies Allergy Mild Verified 07/13/21 10:04 Medications Home Medications Medication Instructions Recorded Confirmed Last Taken doxazosin 4 mg tablet 4 mg PO HS 06/20/20 09/14/21 05/23/21 hydrochlorothiazide 12.5 mg capsule 12.5 mg PO QAM 06/20/20 09/14/21 05/24/21 07:30 hydroxyzine HCl 25 mg tablet 25 mg PO BID PRN 06/20/20 09/14/21 05/24/21 07:30 levothyroxine 75 mcg tablet 75 mcg PO QAM 06/20/20 09/14/21 05/24/21 07:00 (Synthroid) lisinopril 5 mg tablet 5 mg PO BID 06/20/20 09/14/21 05/24/21 07:30 zolpidem 5 mg tablet 5 mg PO HS PRN 06/20/20 09/14/21 02/06/21 21:00 ascorbic acid (vitamin C) 500 mg 500 mg PO QAM 01/02/21 09/14/21 05/24/21 07:30 tablet (Vitamin C) benzonatate 100 mg capsule 100 mg PO BID PRN 01/02/21 09/14/21 02/06/21 21:00 (Tessalon Axel) omeprazole 20 mg capsule,delayed 20 mg PO QPM 01/02/21 09/14/21 05/23/21 release carvedilol 12.5 mg tablet 12.5 mg PO BID 02/02/21 09/14/21 05/24/21 07:30 Past Medical History Medical History (Updated 09/24/21 @ 09:55 by Tashia Sam PA-C) Ascending aortic aneurysm Under surveillance by Dr. Cruz CT scan 06/20/20 shows stability at 4.9 cm BPH (benign prostatic hyperplasia) Chest discomfort "long-standing history of chronic ongoing chest discomfort with past nonischemic stress testing...angiographically normal coronary arteries..." follows with [facility] cardio, stable per note and pt Chronic pain GERD (gastroesophageal reflux disease) Controlled, stable, denies issues laying flat HTN (hypertension) controlled, stable Hypothyroidism Metabolic syndrome X Osteoarthritis Patient denies h/o stroke, seizures, heart attack, heart failure, DM, blood clots or blood transfusions. Exercise / Class Metabolic Activity II 4-5 Yardwork/Stairs/Walk up hill (mild SOB with 1 FOS chronic per pt and cardio note, no CP) Past Family History Family History Other No family history of adverse response to anesthesia Past Surgical History Surgical History History of arthroscopy of left knee History of cardiac cath 08/2018 > no stents History of lumbar surgery x2 (+ hardware) History of right hip replacement Hx of appendectomy Hx of total knee arthroplasty Left TKA (02/07/21): SAB at L3-L4 (x1 attempt) + PNB at [facility]. No issues per anesthesia progress note. PONV (postoperative nausea and vomiting) S/P epidural steroid injection caudal steroid injection with Dr Roach, 05/2021 Past Anesthesia History No Family Hx of Anesthesia Complications and Other (PONV) History of PONV No Hx of Motion Sickness and History of PONV (denies scop patch, did well IV meds) Social History Smoking Status: Never smoker Do You Dip or Chew Tobacco: No Hx Alcohol Use: Yes alcohol intake frequency: a few times a month Hx Substance Use: No substance use type: does not use Review of Systems Reported snoring, denies witnessed apneas or sleep studies. Chronic cough productive of mucus, follows with PCP. Ongoing since 2018, denies change or worsening. Patient denies chest pain, shortness of breath, dyspnea on exertion, fever, chills, wheezing, or palpitations. Physical Exam Vital Signs Vitals BP 120/79 P 58 TEMP 97.9 SP02 95% on RA RESP 16 Physical Moderately limited cervical extension range of motion with mild pain Full TMJ range of motion TMD 3.5 finger breaths Mallampati Score 3 Dentition: intact; denies missing, loose, chipped teeth, caps/crowns, implants or bridges Lungs: normal respiratory effort. Clear throughout to auscultation, no adventitious breath sounds Cardiac: regular rate and rhythm, no murmurs noted Carotid arteries: negative bruit bilat Extremities: no distal extremity edema Lab Results Anesthesia Preop Results Results Anesthesia Widget: WBC 5.32 K/uL (4.8-10.8) 09/24/21 Hgb 14.0 g/dL (14.0-18.0) 09/24/21 Hct 39.5 % (42-52) L 09/24/21 Plt 180 K/uL (130-400) 09/24/21 Na 137 mmol/L (136-145) 09/24/21 K 4.0 mmol/L (3.5-5.1) 09/24/21 Cl 102 mmol/L (98-107) 09/24/21 CO2 26 mmol/L (21-32) 09/24/21 BUN 10 mg/dl (7-18) 09/24/21 Creat 0.93 mg/dl (0.6-1.4) 09/24/21 Glucose Level 93 mg/dl (70-99) 09/24/21 PT 10.2 Seconds (9.0-12.0) 09/24/21 PTT 26.5 Seconds (21.0-31.0) 09/24/21 INR 1.0 (0.9-1.1) 09/24/21 Urine Color Yellow 09/24/21 Urine Appearance Clear (Clear) 09/24/21 Urine pH 7.5 (4.5-7.5) 09/24/21 Urine Specific [place] 1.009 (1.000-1.030) 09/24/21 Urine Protein Negative (Negative) 09/24/21 Urine Glucose (UA) Negative (Negative) 09/24/21 Urine Ketones Negative (Negative) 09/24/21 Urine Blood Negative (Negative) 09/24/21 Urine Nitrite Negative (Negative) 09/24/21 Urine Bilirubin Negative (Negative) 09/24/21 Urine Urobilinogen Negative (Negative) 09/24/21 Urine Leukocyte Esterase Negative (Negative) 09/24/21 Blood Type A Positive 09/24/21 Antibody Screen NEGATIVE 09/24/21 Testing Electrocardiogram Date: 09/20/21 Normal sinus rhythm, rate 62 bpm. Low voltage QRS. Borderline ECG. Chest X-Ray Date: 09/24/21 IMPRESSION: No acute cardiopulmonary findings. Echocardiogram Date: 05/29/20 EF 61%. Mild cLVH. Left ventricular wall motion is normal. Grade I diastolic dysfunction. Aortic root is mildly enlarged, 4.4 cm. Ascending aorta is moderately enlarged, 4.9 cm. Compared to the prior study 11/23/2018, there has been no significant interval change. No significant valvular dysfunction. Stress Test Date: 06/16/18 Stress echo is negative for inducible ischemia. No arrhythmias. Mild cLVH. EF 55-60%. Grade I diastolic dysfunction. Mild left atrial enlargement. No significant valvular pathology. MPHR 85%. METS 10. Cardiac Catheterization Date: 08/20/18 Left main: no evidence of disease LAD: no evidence of disease Cx: no evidence of disease RCA: no evidence of disease
--- NOTE | 2021-10-16 14:05 | History & Physical Report ---
Date of Service October 16, 2021 Assessment & Plan (1) Right knee DJD: Plan: Postoperative prescriptions for Percocet and warfarin will be provided at discharge from the hospital. Anticipate discharge to home with home health services. The patient is aware of the COVID-19 risks associated with surgery. He is currently asymptomatic of any COVID-19 symptoms. He will obtain nasal swab testing on the Friday prior to surgery. PDMP was checked and there are no concerning findings. The patient has an appointment to see PAT for her preoperative lab work, EKG, and chest x-ray. He has already seen his automation tender for preoperative evaluation as well as his PCP. He does have a known ascending thoracic aorta that is currently 4.9 cm in diameter. The patient does note that he avoids NSAIDs due to a questionable underlying renal disease. History of Present Illness Chief Complaint: Right knee DJD Primary Care Provider: Huang Ma DO This 61-year-old male presents for his preoperative history and physical. He is scheduled to undergo a right knee total knee arthroplasty on 10/17/2021. The patient was previously scheduled on 08/08/2021 but was postponed. The patient has a longstanding history of right knee pain. It has become worse over the last several years. He denies any catching or locking. He has had a few episodes of buckling secondary to sharp and intense pain. He elects to proceed with surgical intervention in hopes of improving his pain and function. Current pain is affecting his ADLs. It is worse with weightbearing and ambulatory activities. He does note some loss of motion of the right knee. Preoperative imaging has been obtained. Allergies Allergy/AdvReac Type Severity Reaction Status Date / Time No Known Allergies Allergy Mild Verified 07/13/21 10:04 Home Medications Medication Instructions Recorded Confirmed Type doxazosin 4 mg tablet 4 mg PO HS 06/20/20 09/14/21 History hydrochlorothiazide 12.5 mg capsule 12.5 mg PO QAM 06/20/20 09/14/21 History hydroxyzine HCl 25 mg tablet 25 mg PO BID PRN 06/20/20 09/14/21 History levothyroxine 75 mcg tablet 75 mcg PO QAM 06/20/20 09/14/21 History (Synthroid) lisinopril 5 mg tablet 5 mg PO BID 06/20/20 09/14/21 History zolpidem 5 mg tablet 5 mg PO HS PRN 06/20/20 09/14/21 History ascorbic acid (vitamin C) 500 mg 500 mg PO QAM 01/02/21 09/14/21 History tablet (Vitamin C) benzonatate 100 mg capsule 100 mg PO BID PRN 01/02/21 09/14/21 History (Tessalrehan Perles) omeprazole 20 mg capsule,delayed 20 mg PO QPM 01/02/21 09/14/21 History release carvedilol 12.5 mg tablet 12.5 mg PO BID 02/02/21 09/14/21 History Past Med/Surg History Medical History Ascending aortic aneurysm Under surveillance by Dr. Cruz CT scan 06/20/20 shows stability at 4.9 cm BPH (benign prostatic hyperplasia) Chest discomfort "long-standing history of chronic ongoing chest discomfort with past nonischemic stress testing...angiographically normal coronary arteries..." follows with [facility] cardio, stable per note and pt Chronic pain GERD (gastroesophageal reflux disease) Controlled, stable, denies issues laying flat HTN (hypertension) controlled, stable Hypothyroidism Metabolic syndrome X Osteoarthritis Surgical History History of arthroscopy of left knee History of cardiac cath 08/2018 > no stents History of lumbar surgery x2 (+ hardware) History of right hip replacement Hx of appendectomy Hx of total knee arthroplasty Left TKA (02/07/21): SAB at L3-L4 (x1 attempt) + PNB at [facility]. No issues per anesthesia progress note. PONV (postoperative nausea and vomiting) S/P epidural steroid injection caudal steroid injection with Dr Roach, 05/2021 Family History (Updated 10/16/21 @ 14:03 by Juan Manuel Watkins PA-C) Other Hypertension Hypothyroidism No family history of adverse response to anesthesia Renal cancer Social History (Updated 10/16/21 @ 14:03 by Juan Manuel Watkins PA-C) Smoking Status: Never smoker Second Hand Exposure: No; Hx Alcohol Use: Yes Hx Substance Use: No Preferred Language: Hungarian Communication Ability: Effective Clinical Education Consultant Required: No Beliefs That Will Affect Care: None marital status: Current Living Situation: Spouse current occupational status: employed 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 Physical Exam Physical Exam: Vitals: Height 190.2 cm, weight 146 kilograms, BMI 40.4, temperature 36.2, BP 126/84, pulse 64, O2 sat 97% on room air. General: Well-developed, well-nourished middle-aged white male in no acute distress. Sitting in a chair. Alert and oriented. Large individual. Skin: Warm and dry with good turgor. No rashes. He does have some dry skin on his legs. This is consistent with previous exams. No intra-articular effusion in the right knee. HEENT: Normocephalic, atraumatic. Eyes: PERRLA, EOMI. Nares and oropharynx exams were deferred due to COVID precautions. Heart: RRR. No MGR. Lungs: Clear to auscultation bilaterally. No crackles, rhonchi or wheezing. Good air movement. Abdomen: Mildly obese, bowel sounds present x4, soft, nontender. No organomegaly. No masses. Musculoskeletal: Right knee evaluation reveals no intraarticular effusion. No redness or warmth. He lacks a couple degrees of terminal extension. It is nearly full extension. Flexion around 100 degrees. Strength is 5/5 with fairly good quad tone. Stable collateral ligaments. He has focal discomfort with palpation over the medial and lateral joint lines today, medial being worst. No defect in the patellar tendon or quadriceps tendon. Ambulating today with a slightly antalgic gait. Neurologic: Gross sensation is intact across both lower extremities by soft touch. Peripheral pulses are 2+. He has some decreased subjective sensation around his ankle on the right. Results & Data Results & Data ([facility]) Diagnostic Findings Radiographic imaging previously obtained shows end-stage DJD of the right knee. Periarticular osteophytes, subchondral sclerosis, and joint space narrowing are all present. Code Status & VTE Plan VTE Prophylaxis Plan VTE Prophylaxis will be ordered: Yes
[2021-10-17] MEDS ORDERED: ROPIVACAINE 0.5% HCL/PF 150 MG, BUPIVACAINE 0.75% MPF 20 ML, EPINEPHrine 0.15 MG, Ketor... INFIL SCH (06:00)
[2021-10-17] MEDS ORDERED: LR 500ML BOLUS, THEN 15ML/HR IV SCH (06:00)
[2021-10-17] MEDS ORDERED: LR 60ML/HR IV SCH (06:00)
[2021-10-17] MEDS ORDERED: TRANEXAMIC ACID 1,000 MG **IV Pre-op IV SCH (06:00)
--- NOTE | 2021-10-17 06:24 | History & Physical Bridge Note ---
Date of Service October 17, 2021 History & Physical Bridge Note I have examined the patient, reviewed the History & Physical and in the interval since the performance of the History & Physical I have noted the following changes of clinical significance: consent obtained/site verified/covid screen negative.no changes noted
[2021-10-17] MEDS ORDERED: PROPOFOL IV EMULSION 10 MG/ML 20 ML VIAL IV ONE ×3 (06:25→07:30)
[2021-10-17] MEDS ORDERED: fentaNYL citrate 100 MCG/2 ML VIAL ONE (06:25)
[2021-10-17] MEDS ORDERED: MIDAZOLAM HCL 1 MG/ML 2ML VIAL ONE ×2 (06:25)
[2021-10-17] MEDS ORDERED: BUPIVACAINE 0.5 % 5 MG/1 ML PF 10ML VIAL ONE (06:28)
[2021-10-17] MEDS ORDERED: ROPIVACAINE 0.5% 5 MG/ML 30 ML VIAL ONE (06:28)
[2021-10-17] MEDS ORDERED: ORTHO JOINT ANESTHETIC ONE (06:34)
[2021-10-17] MEDS ORDERED: HYDROmorphone INJ 2 MG/ML SYR/VIAL IV PRN (07:07)
[2021-10-17] MEDS ORDERED: ATROPINE SULFATE 0.1 MG/ML 10ML SYR IV PRN (07:07)
[2021-10-17] MEDS ORDERED: fentaNYL citrate 100 MCG/2 ML VIAL IV PRN (07:07)
[2021-10-17] MEDS ORDERED: ONDANSETRON INJ 2 MG/ML 2 ML VIAL IV PRN (07:07)
[2021-10-17] MEDS ORDERED: ePHEDrine sulfate 50 MG/ML AMP IV PRN (07:07)
[2021-10-17] MEDS ORDERED: PHENYLEPHRINE HCL 10 MG/ML VIAL ONE (07:21)
[2021-10-17] MEDS ORDERED: ePHEDrine sulfate 50 MG/ML AMP ONE (07:29)
[2021-10-17] MEDS ORDERED: GLYCOPYRROLATE 0.2 MG/ML VIAL ONE (07:58)
--- NOTE | 2021-10-17 08:34 | Post Operative Brief Note ---
Immediate Post Op Note v1 Date of Surgery October 17, 2021 Pre & Post Diagnosis Operation Date: 10/17/21 07:00 Pre-Op Diagnosis: Right Knee Degenerative Joint Disease Post-Op Diagnosis: Right Knee Degenerative Joint Disease I identified the patient and participated in the time-out.: Yes Procedure Operation Date: 10/17/21 07:00 Actual Procedures p Right Total Knee Arthroplasty(Right) - Stef Prado MD Surgeon Stef Prado MD [facility] Estimated Blood Loss 50 Findings Consistent with Post-Op Diagnosis
--- NOTE | 2021-10-17 08:41 | Operative Report ---
Post Operative Report Pre & Post Diagnosis Operation Date: 10/17/21 07:00 Pre-Op Diagnosis: Right Knee Degenerative Joint Disease Post-Op Diagnosis: Right Knee Degenerative Joint Disease I identified the patient and participated in the time-out.: Yes Procedure Operation Date: 10/17/21 07:00 Actual Procedures p Right Total Knee Arthroplasty(Right) - Stef Prado MD Surgeon JOCE Prado MD Licensed Mental Health Counselor June SARABIA Estimated Blood Loss 50 Findings Consistent with Post-Op Diagnosis see operative report Specimens see operative report Drains none Complications none Disposition Accompanied Patient To Recovery: Yes Indications This 61-year-old male presented to the office with complaints of persisting right knee pain. He had tried conservative care measures without improvement. He elected to proceed with surgical intervention after being educated about potential risks and outcomes. Preoperative imaging was obtained. Description of Procedure Patient was administered a spinal anesthetic and then taken to the operating room where he was given sedation. He was prepped and draped in the usual sterile fashion. Please see Dr. Prado's operative report for specifics of the procedure. I was present for the entire case from initial patient positioning through final wound closure. Assistance was provided in tissue retraction, hemostasis, trial implant placement, final implant placement, and final wound closure. Patient was taken to the recovery room in satisfactory condition. I attest to the content of the Intraoperative Record and any orders documented therein. Any exceptions are noted below.
--- NOTE | 2021-10-17 09:04 | Operative Report (OR) ---
DATE OF PROCEDURE: 10/17/2021. SURGEON: Stef Prado MD. GUN STOCKER: Juan Manuel Watkins PA-C. No resident or fellow available. PREOPERATIVE DIAGNOSES: Osteoarthritis with varus flexion deformity, right knee. POSTOPERATIVE DIAGNOSES: Osteoarthritis with varus flexion deformity, right knee. OPERATION PERFORMED: Cemented right total knee replacement. SUMMARY OF IMPLANTS: Size 5 right femur posterior cruciate substituting size 5 mobile bearing tray, size 5 insert, posterior cruciate substituting x10 mm thick, 41 patella. Two bags of [place] G cemen t. ESTIMATED BLOOD LOSS: 50 mL. CRYSTALLOID: Per anesthesia. PATHOLOGY: Pending on bone. DVT PROPHYLAXIS: Per protocol. PERIOPERATIVE SITUATION: Medically cleared male with intractable knee pain, has had a left knee repl acement and right hip replacement, now wants his right knee replaced. He has significant varus flexion deformity, tricompartmental osteoarthritis. DESCRIPTION OF PROCEDURE: The patient was appropriately identified, site verified, consent verified. Antibiotics were confirmed as being given. Right lower extremity was prepped and draped in usual r outine fashion. Tourniquet was inflated to 300 mmHg after exsanguination of the limb with a rubber E smarch bandage for a total of 55 minutes. Midline exposure utilized. Parapatellar arthrotomy perfor med. Synovectomy completed, osteophytes resected. Distal femur entered. Cruciates resected. Dista l femur resected 14 mm, proximal tibia 4 mm, the extension gap was excellent. The femur was sized be tween a 6 and a 5, was measured 6 cut 5. There was no notching. Flexion gap was good. The box cut was made, a size 5 fit well. The tibia was then subluxated then broached and reamed for a size 5 tib ia, 10 mm spacer was excellent. There was no mid range instability. Patella tracked well. The joe lla was quite thick. It was resected leaving about 15 mm and a 41 oval dome 3-peg patella. Trial dr zepeda and placed in the position, it tracked well. The Orthomix was then injected all about the knee . All trial implants were removed, the wound irrigated with Betadine Pulsavac, and then the permanen t cemented in position tibia, femur, and patella in that order. At 14 minutes, the tourniquet was le t down. Minor bleeding points controlled with electrocautery. Minor cement removal required, some b one wax used on some raw cuts of bone. The wound irrigated one final time and then closed with #2 Vi cryl, 2-0 Vicryl and stainless steel clips. Appropriate dressing applied. The patient was transferr ed to recovery room in satisfactory condition, having tolerated the procedure well. Job ID: [id number]
[2021-10-17] MEDS ORDERED: VANCOMYCIN HCL 2,000 MG in SODIUM CHLORIDE 0.9% 500 ML IV ONE (09:15)
--- NOTE | 2021-10-17 09:18 | XRay Report ---
RIGHT KNEE 2 VIEWS History: Right total knee arthroplasty. Degenerative arthritis. Postop. FINDINGS: The patient is status post a right total knee arthroplasty. The hardware is intact. No frac ture or dislocation. Skin booker are in place. IMPRESSION: Right total knee arthroplasty. No evidence for hardware complication. ACT 112: Negative or not required by law. Electronically signed by: Joel Gresham M.D. 10/17/2021 9:17 AM
--- NOTE | 2021-10-17 09:51 | Anesthesiology Progress Note ---
Date of Service October 17, 2021 Anesthesia Post Procedure Vital Signs Vital Signs: Temp Pulse Pulse Resp BP BP Pulse Ox 10/17/21 09:40 75 16 101/66 95 10/17/21 09:30 36.2 C L 55 L 16 114/84 95 10/17/21 09:20 74 17 105/78 93 10/17/21 09:10 67 13 102/82 97 10/17/21 09:00 67 18 107/81 97 10/17/21 08:50 77 14 100/84 96 10/17/21 08:40 36.4 C L 74 14 116/80 99 10/17/21 06:34 36.6 C 64 18 126/88 Transfer of Care Handoff Completed per policy Notes Mental Status: alert / awake / arousable and participated in evaluation Patient Amnestic to Procedure: Yes Nausea / Vomiting: adequately controlled Pain: adequately controlled Airway Patency, RR, SpO2: stable & adequate BP & HR: stable & adequate Hydration State: stable & adequate Neuraxial Anesthesia: was administered and sensory block is resolving Anesthetic Complications: no major complications apparent
[2021-10-17] MEDS ORDERED: NALOXONE HCL 0.4 MG/1 ML VIAL/CARP IV PRN (10:28)
[2021-10-17] MEDS ORDERED: MAGNESIUM HYDROXIDE SUSP 30 ML UDC PO PRN (10:28)
[2021-10-17] MEDS ORDERED: SODIUM CHLORIDE 0.9% 1000ML 1,000 ML IV SCH (10:28)
[2021-10-17] MEDS ORDERED: hydrOXYzine HCl 25 MG TAB PO PRN (10:28)
[2021-10-17] MEDS ORDERED: ALUMINUM/MAGNESIUM SUSP 30 ML UDC PO PRN (10:28)
[2021-10-17] MEDS ORDERED: ZOLPIDEM TARTRATE 5 MG TAB PO PRN (10:28)
[2021-10-17] MEDS ORDERED: METOCLOPRAMIDE HCL INJ 5 MG/ML 2 ML VIAL IV PRN (10:28)
[2021-10-17] MEDS ORDERED: diphenhydrAMINE 50 MG/ML VIAL IV PRN (10:28)
[2021-10-17] MEDS ORDERED: TAMSULOSIN HCL 0.4 MG CAP PO PRN (10:28)
[2021-10-17] MEDS ORDERED: bisacodyL 10 MG SUPP PR PRN (10:28)
[2021-10-17] MEDS ORDERED: BENZONATATE 100 MG CAPSULE PO PRN (10:28)
--- NOTE | 2021-10-17 11:17 | Progress Notes ---
DATE OF SERVICE: 10/17/2021 SUBJECTIVE: Postop check status post right total knee replacement. The patient is sitting up comfor tably. Denies chest pain, shortness of breath, fever, chills, nausea, vomiting or headache. Spinal is wearing off, but still has dysfunction from that. Wound dressing is clean, dry and intact. Postop x-rays look excellent. ASSESSMENT: Overall doing well. Continue with postoperative care pathway. Discharge home tomorrow if does well overnight. Status post right total knee replacement. Job ID: [id number]
--- NOTE | 2021-10-17 11:26 | Discharge Summary (DS) ---
DATE OF ADMISSION: 10/17/2021 DATE OF DISCHARGE: 10/18/2021 if does well overnight. CHIEF COMPLAINT: Right knee pain. HISTORY OF PRESENT ILLNESS: Underwent elective right total knee replacement. The patient's procedure went well, has no issues. ALLERGIES: None known. HOME MEDICATIONS: Please see med reconciliation sheet. PAST MEDICAL AND PAST SURGICAL HISTORY: Remarkable for an ascending aortic aneurysm that is under banerjee rveillance by Dr. Cruz, BPH, chest discomfort. No known coronary artery disease based on angiogr am. GERD, hypertension, hypothyroidism, metabolic syndrome X, osteoarthritis, history of knee scopes, history of lumbar surgery. Negative cardiac catheterization. Right hip replacement, left knee repla cement, multiple back injections. FAMILY HISTORY: Remarkable for hypertension, hypothyroidism, renal cancer. SOCIAL HISTORY: Reveals that he does not smoke, does not drink. Feels safe at home. REVIEW OF SYSTEMS: Reveals no chest pain, shortness of breath, fever, chills, nausea, vomiting or he adache. ASSESSMENT: Status post right total knee replacement, doing well. Continue with postoperative care pathway. Discharge to home tomorrow. Job ID: [id number]
[2021-10-17] MEDS: ONDANSETRON INJ 2 MG/ML 2 ML VIAL IV PRN ×2 (13:06→18:13)
[2021-10-17] MEDS: carvediloL 12.5 MG TAB PO SCH ×3 (13:28→21:39)
[2021-10-17] MEDS: hydroCHLOROthiazide 25 MG TAB PO SCH (13:28)
[2021-10-17] MEDS: lisinopril 5 MG TAB PO SCH ×2 (13:29→21:40)
[2021-10-17] MEDS: ACETAMINOPHEN 500 MG TAB PO SCH ×2 (13:29→21:42)
[2021-10-17] MEDS: ceFAZolin 2000MG 2,000 MG/15 ML SYR IV SCH ×2 (13:30→21:34)
[2021-10-17] MEDS: MULTIVITAMIN TAB PO SCH (13:30)
[2021-10-17] MEDS: DOCUSATE SODIUM 100 MG CAP PO SCH ×2 (13:30→21:39)
[2021-10-17] MEDS: HYDROmorphone INJ 0.5 MG/0.5 ML SYR IV PRN ×2 (13:34→19:41)
[2021-10-17] MEDS: LEVOTHYROXINE SODIUM 75 MCG TABLET PO SCH (13:36)
[2021-10-17] MEDS ORDERED: ORTHO WARFARIN NOMOGRAM SCH (14:00)
[2021-10-17] MEDS: oxyCODONE HCL IR 5 MG TAB (IMMEDIATE RELEASE) PO PRN ×2 (14:30→21:33)
[2021-10-17] MEDS ORDERED: TRANEXAMIC ACID / 0.7% NACL 1,000 MG/100 ML BAG IV SCH (15:00)
[2021-10-17] MEDS ORDERED: WARFARIN SOD 5 MG TAB PO ONE (16:00)
[2021-10-17] MEDS: ASCORBIC ACID 500 MG TAB PO SCH (17:40)
[2021-10-17] MEDS: FERROUS GLUCONATE 324 MG TAB PO SCH (17:40)
[2021-10-17] MEDS ORDERED: PANTOprazole 40 MG TAB PO SCH (21:00)
[2021-10-17] MEDS ORDERED: DOXAZosin MESYLATE 4 MG TAB PO SCH (21:00)
[2021-10-17] MEDS ORDERED: SENNA 8.6 MG TAB PO SCH (21:00)
[2021-10-18] MEDS: oxyCODONE HCL IR 5 MG TAB (IMMEDIATE RELEASE) PO PRN ×3 (01:20→11:55)
[2021-10-18] MEDS ORDERED: LR 500ML BOLUS, THEN 15ML/HR IV SCH (06:00)
[2021-10-18] MEDS: ACETAMINOPHEN 500 MG TAB PO SCH (06:03)
[2021-10-18 06:15] LABS: Hematocrit (blood only) 33.5 % (42-52); Hemoglobin 11.6 g/dL (14.0-18.0); Mean Corpuscular Hemoglobin 31.4 pg (25-34); Mean Corpuscular Hgb Conc 34.6 g/dL (32-36); Mean Corpuscular Volume 90.8 fL (80-100); Mean Platelet Volume 9.9 fL (7.4-10.4); Platelet Count 147 K/uL (130-400); RDW Coefficient of Variation 12.5 % (11.5-14.5); RDW Standard Deviation 41.3 fL (36.4-46.3); Red Blood Count 3.69 M/uL (4.7-6.1); White Blood Count 7.83 K/uL (4.8-10.8)
[2021-10-18 06:16] LABS: Prothrombin Time 10.6 Seconds (9.0-12.0)
[2021-10-18] MEDS: LEVOTHYROXINE SODIUM 75 MCG TABLET PO SCH (06:45)
[2021-10-18 06:46] LABS: BUN Creatinine Ratio 15.5 (10-20); Calcium 8.6 mg/dl (8.5-10.1); Creatinine Clr Calc Pharmacy 101.3 ml/min; Est GFR (African American) 77.8 ml/min; Est GFR (Non-African American) 67.1 ml/min
[2021-10-18] MEDS: lisinopril 5 MG TAB PO SCH (07:40)
[2021-10-18] MEDS: DOCUSATE SODIUM 100 MG CAP PO SCH (07:40)
[2021-10-18] MEDS: carvediloL 12.5 MG TAB PO SCH (07:40)
[2021-10-18] MEDS: MULTIVITAMIN TAB PO SCH (07:41)
[2021-10-18] MEDS: hydroCHLOROthiazide 25 MG TAB PO SCH (07:41)
[2021-10-18] MEDS: ASCORBIC ACID 500 MG TAB PO SCH (07:42)
[2021-10-18] MEDS: FERROUS GLUCONATE 324 MG TAB PO SCH (07:42)
[2021-10-18] MEDS ORDERED: dexAMETHasone 10 MG in SYRINGE 0 ML IV SCH (08:00)
--- NOTE | 2021-10-18 09:15 | Orthopedic Progress Note ---
Date of Service October 18, 2021 Assessment & Plan (1) S/P total knee arthroplasty: Plan: Patient's dressing was changed today by me. Written discharge instructions were provided. Discharge to home after PT/OT. Continue wearing the knee immobilizer today and tomorrow, and discontinue on Friday morning. Prescriptions for Percocet and Coumadin were sent into his pharmacy. Follow-up in the office in 2 weeks as scheduled for staple removal. Home health services will see him this weekend. He will have his blood drawn on Friday to check his INR. Dressings may be changed on Friday if they are soiled. Call the office with any other concerns. Admission and Anticipated Discharge Date Admission Date: October 17, 2021 Subjective Patient is seen in his room this morning. States he did well overnight. He has already been bed using his walker. He denies any chest pain or shortness of breath. No abdominal pain. Right knee pain is currently controlled. He feels ready for discharge to home. No other complaints. Review of Systems Review of Systems: Unchanged from yesterday. Physical Exam Physical Exam: General: Well-developed, well-nourished, middle-aged male, in no acute distress. Laying in his bed. Alert and oriented. Conversive. Skin: Warm and dry with good turgor. Postsurgical dressing is in place. Upon removal, there is scant dried drainage on the inner dressings. He has no active drainage currently. Flynn are intact. Wound edges are well approximated. Expected postoperative edema. No ecchymosis. No erythema. Musculoskeletal: Gross motor function of the right leg is intact. He is able to set his quad and perform a straight leg raise. Intact motor function of the ankle. He has full terminal extension of the knee. Active flexion to around 45 degrees easily. Neurologic: Gross sensation is intact across the right leg by soft touch. Peripheral pulses are 2+. Results & Data ([facility]) Vital Signs (Past 12 Hours) Vital Signs Pulse Resp BP Pulse Ox 10/17/21 21:31 70 14 127/81 93 Laboratory Results H&H this morning are 11.6 and 33.5. INR of 1.0. PRP shows a sodium of 131. Otherwise unremarkable.
[2021-10-18] MEDS ORDERED: WARFARIN SOD 5 MG TAB PO ONE (10:00)
== END 2021-10-18 13:50 | disposition home health service (06) ==
LOC: PACUINP 05:16 → ASU 05:16 → ASUINP 19:29